=== PATIENT | female | born 1950 | race Caucasian/White ===

== ENCOUNTER → 2017-08-30 | Outpatient (CLI) | payer MEDICARE, MEDICAID | LOC: COL.RAD 08-21 10:30 | DX: M25.551 Pain in right hip (principal) | CPT/HCPCS: J3301; Q9967 ==

== ENCOUNTER → 2017-12-19 | Outpatient (CLI) | payer MEDICARE, MEDICAID ==
[2017-12-19 16:39] LABS: HIV 1/2 Antibodies Non-Reactive; HIV-1p24 Antigen Non-Reactive
== END ==
LOC: COL.LAB 15:37
PROVIDERS: Orthopaedic Surgery
DX: Z01.812 Encounter for preprocedural laboratory examination (principal); M17.11 Unilateral primary osteoarthritis, right knee

== ENCOUNTER 2018-12-25 07:57 | Day surgery (SDC) | payer MEDICARE, MEDICAID ==
[2018-12-25] VITALS (13 sets, daily range): BP systolic 98–114; BP diastolic 62–75; PULSE 58–89; TEMP 98.1
[~2018-12-25] VITALS: Ht 162.6 cm; Wt 82.5 kg
[~2018-12-25 07:57] MED LIST: 00186-0372-20 IH; ALBUTEROL0.83 MG/ML IH; ALDACTONE 25MG25 M1 PO; ANTIVERT 25MG25 MG PO; ASPIRIN E.C. 8181 MG PO; BRILINTA90 MG PO; COREG 6.256.25 MG/TA PO; FLEXERIL 1010 MG/TAB PO; LASIX 80MG TABL80 MG PO; LIPITOR 80MG80 MG PO; LOVENOX 4040 MG/0.4 SQ; NASONEX SPRAY17 GM NS; NORCO 325 MG-7.1 TAB PO; PERCOCET 325 MG1 TAB PO; PLAVIX 75MG TAB75 MG PO; PRIL40 PO; ROXICODONE 55 MG/TAB PO; SINGULAIR 110 MG/TAB PO; TUDORZA IH; VENTOLIN0.09 MG IH; VITAMIND3 5000 PO; WELLBUTRIN 100100 MG PO; ZESTRIL 5MG5 MG PO
[2018-12-25] MEDS ORDERED: COREG12.5 MG PO (08:14)
[2018-12-25] MEDS ORDERED: ANTIVERT 25MG25 MG PO (08:17)
[2018-12-25] MEDS ORDERED: ZESTRIL30 MG PO (08:17)
[2018-12-25] MEDS ORDERED: ALLEGRA 60MG TA60 MG PO (08:18)
[2018-12-25 08:54] LABS: HEMATOCRIT 40.3 % (37.0-47.0); MEAN CELL VOLUME 87 fl (80.0-100.0); MEAN CORPUSCULAR HEMOGLOBIN 28 pg (27.0-31.0); MEAN CORPUSCULAR HGB CONC 32 g/dl (33.0-37.0); MEAN PLATELET VOLUME 10.1 fl (7.4-10.4); PLATELET COUNT 273 K/mm3 (130-400); RED BLOOD COUNT 4.62 M/mm3 (4.10-5.30); REDCELL DISTRIBUTION WIDTH-CV 15.9 % (11.5-14.5)
[2018-12-25 09:00] LABS: CALCIUM 9.1 mg/dL (8.4-10.2); CREATININE, serum 0.7 mg/dL (0.52-1.25); POTASSIUM 3.9 mmol/L (3.4-5.0)
[2018-12-25 09:04] LABS: PROTHROMBIN TIME 11.7 SECONDS (9.7-12.8)
--- NOTE | 2018-12-25 09:45 | NUR ---
ALL MEDICATIONS GIVEN WITH VERBAL ORDER AND READBACK WITH MD. SEE MERGE FOR ALL MEDICATION ADMIN TIMES. SEE MERGE FOR ALL RASS ASSESSMENTS DURING AND POST PROCEDURE.
--- NOTE | 2018-12-25 10:55 | NUR ---
Back from labor relations consultant. Right groin site CD&I and soft too palpation. Pedal pulses palpable. Bed in trendelenberg position. VSS. Teaching done about not moving right leg and keeping head down.
--- NOTE | 2018-12-25 16:19 | NUR ---
Increased HOB to 30 degrees. Right groin soft to palpation
--- NOTE | 2018-12-25 16:45 | NUR ---
INT discontinued intact. Discharge instructions given and transferred to private car by ishaan
== END 2018-12-25 16:45 | disposition home or self-care (01) ==
LOC: COL.CAR 07:57
PROVIDERS: Internal Medicine Cardiovascular Disease
DX: I25.10 Atherosclerotic heart disease of native coronary artery without angina pectoris (principal); R94.39 Abnormal result of other cardiovascular function study; I10 Essential (primary) hypertension; J44.9 Chronic obstructive pulmonary disease, unspecified; E78.00 Pure hypercholesterolemia, unspecified; Z95.5 Presence of coronary angioplasty implant and graft
CPT/HCPCS: C1894; J1644; J2250; J3010; Q9967